=== PATIENT | male | born 1950 | race Caucasian/White ===

== ENCOUNTER → 2022-11-27 07:42 | Outpatient (CLI) | payer MEDICARE, SELFPAY ==
--- NOTE | ~2022-11-27 | US_ITS ---
EXAMINATION: US venous doppler [facility] DATE: 11/27/2022 08:11 INDICATION: Left lower limb swelling. TECHNIQUE: Grayscale ultrasound images without and with compression and Doppler ultrasound images of the left lower extremity veins were obtained. COMPARISON: None. FINDINGS: The visualized portions of left common femoral vein, profunda (deep) femoral vein, femoral vein, popl iteal vein, peroneal veins, posterior tibial veins, and greater saphenous vein outflow are patent. IMPRESSION: 1. No deep venous thrombosis. Reviewed, dictated and finalized at location A.
== END ==
PROVIDERS: PCP Nurse Practitioner Family; Visit Provider Nurse Practitioner Family
DX: M79.89 Other specified soft tissue disorders (principal)
CPT/HCPCS: 93971

== ENCOUNTER 2023-01-05 01:28 | Day surgery (SDC) | payer MEDICARE, SELFPAY ==
[2022-12-30 09:22] VITALS: BMI 28.8
[2023-01-05 09:03] VITALS: BP 141/78; PULSE 64; RESP 20; TEMP 36.1; O2SAT 100
[2023-01-05] MEDS: LACTATED RINGERS 1,000 ML 150 ML IV CONT (09:20)
--- NOTE | 2023-01-05 09:36 | WPDANESEPPF ---
Anes - Initial Pre Proc Eval Procedure: Operation Date: 01/05/23 10:15 Proposed Procedures p Colonoscopy - Oscar Massey MD Date/Time: 01/05/23 09:36 Surgeon: Oscar Massey MD Pre Op Diagnosis: family hx colon ca Patient Data Age: 72 Gender: M Height: 1.75 m Weight: 91.2 kg Last Vital Signs Temp 97.0 F L 01/05/23 09:03 Pulse 64 01/05/23 09:03 Resp 20 01/05/23 09:03 BP 141/78 H 01/05/23 09:03 Pulse Ox 100 01/05/23 09:03 O2 Del Method Room Air 01/05/23 09:03 Allergies Allergy/AdvReac Type Severity Reaction Status Date / Time ciprofloxacin Allergy Unknown Unknown Verified 01/05/23 09:21 Home Medications Medication Instructions Recorded Confirmed Type pantoprazole 40 mg tablet,delayed 40 mg PO DAILY 11/24/22 01/05/23 History release rosuvastatin 20 mg tablet 10 mg PO DAILY 11/24/22 01/05/23 History Patient hx anesthesia problems: none Family hx anesthesia problems: none Results Review: All pre-operative results and documents have been reviewed as part of the pre-operative evaluation. [facility] Past Medical History Medical History Acid reflux KATIE on CPAP Surgical History Surgical History History of appendectomy (1956) History of eye surgery (1985) History of laminectomy (1984) Family History Family History Father Malignant neoplasm of prostate Heart disease Mother Breast cancer Sibling Breast cancer Carcinoma of colon Grandparent Carcinoma of colon Social History Social History Smoking status: Never smoker Alcohol intake: never Substance use: never Substance use type: does not use Living arrangements: with family Occupation/Education: retired Gender identity (if verbalized by the patient): Male Spiritual care concerns: No Anes - Eval Final PreProcedure Day of Procedure 01/05/23 09:36 Patient weight: normal Heart: regular rate and rhythm Lungs: clear to auscultation Airway: Mallampati scale class II Neurological: alert and oriented Last oral intake: >/= 8 hours ASA classification: III Emergent: no Anesthetic plan: proceed Anesthesia type and monitoring: general GIVS and standard monitoring Results Review: All pre-operative results and documents have been reviewed as part of the pre-operative evaluation. Informed Consent: The patient's anesthetic plan and its attendant risks and benefits were discussed with the patient/family/POA. Questions were solicited and answers provided to the satisfaction of the patient/family/POA.
--- NOTE | 2023-01-05 09:45 | PM.HPGS ---
History of Present Illness History of Present Illness Consent: Risks, benefits, and alternatives have been discussed and questions answered. Patient agrees to proceed with procedure. Chief complaint: family hx colon ca Narrative: Isaías Rutherford is a 72 year old male with last colonoscopy 2013, brother had colon cancer Review of Systems Constitutional: Constitutional: Denies headache(s) and Denies weakness Eyes: Eyes: Denies blurry vision ENT: Reports Normal hearing present, Denies headache(s) and Denies neck pain Cardiovascular: Cardiovascular: Denies chest pain and Denies dyspnea Respiratory: Respiratory: Denies dyspnea Gastrointestinal: Gastrointestinal: Reports no additional gastrointestinal complaints Genitourinary: Genitourinary: Denies dysuria Musculoskeletal: Musculoskeletal: Denies neck pain Integumentary/Breasts: Skin/Breast: Denies dry skin Neurologic: Reports Normal hearing present, Denies headache(s) and Denies weakness Psychiatric: Psychiatric: Denies anxiety Endocrine: Endocrine: Denies change in body appearance Hematologic/Lymphatic: Hematologic/Lymphatic: Denies easy bleeding Allergic/Immunologic: Allergic/Immunologic: Denies urticaria [facility] Past Medical History Medical History (Updated 01/05/23 @ 09:46 by Oscar Massey MD) Acid reflux Family history of colon cancer KATIE on CPAP Surgical History Surgical History History of appendectomy (1956) History of eye surgery (1985) History of laminectomy (1984) Family History Family History Father Malignant neoplasm of prostate Heart disease Mother Breast cancer Sibling Breast cancer Carcinoma of colon Grandparent Carcinoma of colon Social History Social History Smoking status: Never smoker Alcohol intake: never Substance use: never Substance use type: does not use Living arrangements: with family Occupation/Education: retired Gender identity (if verbalized by the patient): Male Spiritual care concerns: No Meds Home Medications and Allergies Home Medications Medication Instructions Recorded Confirmed Type pantoprazole 40 mg tablet,delayed 40 mg PO DAILY 11/24/22 01/05/23 History release rosuvastatin 20 mg tablet 10 mg PO DAILY 11/24/22 01/05/23 History Allergies Allergy/AdvReac Type Severity Reaction Status Date / Time ciprofloxacin Allergy Unknown Unknown Verified 01/05/23 09:21 Vital Signs Vital Signs - 24 hr 01/05/23 09:03 Temperature 97.0 F L Pulse Rate 64 Respiratory Rate 20 Blood Pressure 141/78 H Pulse Oximetry 100 Oxygen Delivery Room Air Exam Const: General: comfortable and no acute distress HENMT: Face/Nose/Sinus: Normal nares present Eyes: General: appearance normal, both eyes and all related structures Neck: Neck: no JVD Resp: Auscultation: clear to auscultation bilaterally Cardio: Rate: regular rate Rhythm: regular rhythm GI: Inspection: non-distended GI Palp: Yes Soft to palpation Skin: General skin exam: normal color Neuro: General: gait normal Speech: normal speech Extrem: General: normal to inspection Psych: Mental Status: mental status grossly normal Assessment and Plan Assessment and plan (1) Family history of colon cancer: Code(s): Z80.0 - Family history of malignant neoplasm of digestive organs Status: Acute Assessment and Plan: colonoscopy
[2023-01-05 10:07] VITALS: BP 109/68; PULSE 57; RESP 20; O2SAT 99
[2023-01-05 10:17] VITALS: BP 106/67; PULSE 57; RESP 20; O2SAT 98
[2023-01-05 10:27] VITALS: BP 116/76; PULSE 52; RESP 20; O2SAT 99
== END 2023-01-05 10:34 | disposition home or self-care (01) ==
PROVIDERS: PCP Nurse Practitioner Family; Visit Provider Internal Medicine Gastroenterology
PROC: 0DJD8ZZ Inspection of Lower Intestinal Tract, Via Natural or Artificial Opening Endoscopic (ICD-10-PCS; CPT 45378; principal; 2023-01-05 10:15)
DX: Z12.11 Encounter for screening for malignant neoplasm of colon (principal); Z80.0 Family history of malignant neoplasm of digestive organs; K21.9 Gastro-esophageal reflux disease without esophagitis; K57.30 Diverticulosis of large intestine without perforation or abscess without bleeding; K63.5 Polyp of colon; D12.3 Benign neoplasm of transverse colon; K64.8 Other hemorrhoids; G47.33 Obstructive sleep apnea (adult) (pediatric)
CPT/HCPCS: 45385; 88305; J2704; J7120